=== PATIENT | male | born 1945 | race Caucasian/White ===

== ENCOUNTER 2016-12-19 07:11 | Day surgery (SDC) | payer MEDICARE, OTHER ==
[2016-12-19] VITALS (13 sets, daily range): BP systolic 101–130; BP diastolic 55–67; PULSE 60–91; RESP 10–18; O2SAT 95–100
[~2016-12-19] VITALS: Ht 172.7 cm; Wt 150.9 kg
[~2016-12-19 07:11] MED LIST: ACET-171 PO; ALBU8.5H2 INHALATION; ASCO100089 PO; ATRV10T PO; BENA40TA2 PO; CALC-140 PO; FLUT9.9S NS; FRSM80T PO; GLUC100016 PO; HYDR-3740 PO; INSU100V28 SUBQ; INSU100V7 SUBQ; MAGN250T29 PO; METO5TAB5 PO; MULT-1018 PO; POTA10CA42 PO; WARF2TAB7 PO
[2016-12-19] MEDS ORDERED: Ondansetron 2 mg/mL 2 mL Inj ONE (07:12)
[2016-12-19] MEDS ORDERED: Ketamine 10 mg/mL 20 mL Inj ONE (07:12)
[2016-12-19] MEDS ORDERED: Glycopyrrolate 0.2 MG/ML 1mL Inj ONE (07:12)
[2016-12-19] MEDS ORDERED: fentaNYL-PF 50 mCg/mL 2 mL Inj ONE (07:12)
[2016-12-19] MEDS ORDERED: 0.9% Sodium Chloride 1,000 ML IV PRN (09:32)
[2016-12-19] MEDS ORDERED: Vancomycin Inj 1,000 MG in IV Premix 1 EACH IV ONE (09:35)
[2016-12-19] MEDS ORDERED: Bupivacaine-MPF 0.5% 30 mL Inj ONE (11:04)
[2016-12-19] MEDS ORDERED: Heparin 1,000 Unit/mL 10 mL Inj ONE (11:04)
[2016-12-19] MEDS ORDERED: Vancomycin 1,000 mg Inj ONE (11:04)
[2016-12-19] MEDS ORDERED: 0.9% Sodium Chloride 250 ML ONE (11:04)
[2016-12-19] MEDS ORDERED: Heparin 5,000 Units/500 mL NS Premix IV ONE (11:04)
[2016-12-19] MEDS ORDERED: Water for Injection 50 ML IV ONE (11:06)
[2016-12-19 11:34] LABS: BASOPHILS % (AUTO) 0.4 % (0-3); EOSINOPHILS % (AUTO) 1.6 % (0-5); MONOCYTES % (AUTO) 9.1 % (4-12); Mean Corpuscular Hemoglobin 29.3 pg (27.0-35.0); Mean Corpuscular Volume 88.5 fL (81-100); NEUTROPHILS % (AUTO) 75.3 % (40-74); Platelet Count 154 bil/L (150-400)
[2016-12-19] MEDS ORDERED: ATOR40TA69 PO (11:45)
[2016-12-19] MEDS ORDERED: METF1000 PO (11:45)
--- NOTE | 2016-12-19 11:46 | NUR ---
Admit OZIEL Admitted to [facility] 5 about 1030. VSS. States pain 7/10 but that it is always a 6-8/10 in feet and generalized. Tele 100% Vpaced. Difficult IV start. IVT notified and IVs started and labs sent. BG 156. Procedure and recovery reviewed. Verbalizes understanding. See EMR for further info and assessment.
[2016-12-19 11:51] LABS: INR 1.58 ratio
[2016-12-19] MEDS ORDERED: Ondansetron 2 mg/mL 2 mL Inj IVPUSH PRN (16:25)
[2016-12-19] MEDS ORDERED: Lactated Ringer's 1,000 ML IV SCH (16:52)
[2016-12-19] MEDS ORDERED: Lactated Ringer's 500 ML IV PRN (16:52)
--- NOTE | 2016-12-19 16:52 | PCM.HPANE ---
Patient Data Surgeon Admitting Provider: Attending Provider:Wilmer Gao MD Primary Care Physician:Nicolette Rosen MD Other Provider:Jacqueline Kaiseringham Anesthesia Reason for Visit Ischemic Cardiomyopathy Ht/WT & BMI Height (Feet): 5 Height (Inches): 8.00 Weight (Kilograms): 150.900 Body Mass Index 50.42 Allergies Coded Allergies: atorvastatin (Verified Allergy, Mild, Myalgia, 12/19/16) niacin (Verified Allergy, Mild, Flushing, 12/19/16) oxycodone (Verified Allergy, Mild, unknown, 12/19/16) Past Anesthesia History Anesthesia History: Denies:: Anesthesia Reactions Diabetes History Hx Diabetes?: Yes (IDDM) MRSA MRSA: No Medications Reported Medications Metformin (Glucophage)1,000 Mg Tablet1,000 Mg PO BID Ref 0 12/19/16 Atorvastatin Calcium 40 Mg [id number] Mg PO DAILY Ref 0 12/19/16 Warfarin Sodium 2 Mg Tablet7 Mg PO DAILY 30 Days Ref 0 12/18/16 Potassium Chloride 10 Meq Capsule.er20 Meq PO TID 30 Days Ref 0 TAKE WITH FOOD 03/19/16 Multivitamin (Multi Vitamin Daily)1 Each Tablet1 Each PO DAILY 30 Days Ref 0 03/19/16 Metolazone 5 Mg Tablet5 Mg PO DAILY #1 TABLET 03/19/16 Insulin Glargine (Lantus U100 Insulin Vial)100 Unit/Ml Vial70 Units SUBQ BID #1 VIAL Ref 0 03/19/16 Insulin Regular, Human (HUMulin-R U100 Insulin Vial)100 Unit/1 Ml VialUnknown Dose SUBQ #1 VIAL Ref 0 03/19/16 Glucosamine Sulfate 2Kcl (Glucosamine)1,000 Mg Tablet1,500 Mg PO BID 03/19/16 Furosemide 80 Mg Txp936 Mg PO DAILY 30 Days Ref 0 03/19/16 Fluticasone Propionate (Flonase Allergy Relief)50 Mcg/Actuation [place].susp9.9 Ml NS PRN For Congestion 03/19/16 Calcium Carbonate/Vitamin D3 (Calcium + Vitamin D Tablet)1 Each Tablet1 Each PO BID 03/19/16 Benazepril 40 Mg Ckfwae26 Mg PO DAILY 03/19/16 Albuterol HFA (Proair HFA)8.5 Gm Hfa.aer.ad2 Puffs INHALATION Q4H #1 INHALER 03/19/16 Acetaminophen 500 Mg Tablet2,000 Mg PO BID PRN For Pain 03/19/16 Hydrocodone-Acetaminophen 10-325 mg 1 Each Tablet1 Tablet PO Q6H PRN For Pain Ref 0 06/12/15 Magnesium Oxide (Magnesium)250 Mg Zruuid105 Mg PO DAILY 12/13/13 Discontinued Reported Medications Ascorbic Acid (Vitamin C)1,000 Mg Tab.chew1,000 Mg PO BID Ref 0 03/19/16 Atorvastatin (Lipitor)10 Mg Tab20 Mg PO DAILY 30 Days Ref 0 12/13/13 Metformin (Glucophage)1,000 Mg Tablet1,000 Mg PO BID Ref 0 03/19/16 Warfarin Sodium 5 Mg Tablet2 Mg PO DAILY 30 Days Ref 0 06/12/15 History History of ENT Problems?: Yes HEENT History: Positive for:: Cataracts (surgically [id number]) Denture Type: None Teeth Condition: Missing Teeth Hx of Heart Problems?: Yes Cardiovascular History: Positive for:: Cardiac Surgery (CABG DECEMBER 1999, pacemaker) Edema Hypertension (on medication) Irregular Heartbeat (atrial fibrillation) Peripheral Vascular Denies:: Chest Pain Congestive Heart Failure Heart Murmur Pacemaker Thrombophlebitis Hx of Respiratory Problem?: Yes Respiratory History: Positive for:: Asthma (uses inhalers) Dyspnea Denies:: COPD Chest Surgery Emphysema Hemoptysis Pneumonia Tuberculosis Hx Neurologic Problems?: No Hx of GI Problems?: Yes Hx of Problems?: No Male Hx: Denies:: Scrotal Mass Testicular Surgery Hx Musculoskeletal Problems?: No Musculoskeletal History: Positive for:: Back Injury Denies:: Joint Replacement Hx of Psycho/Social Problems?: No Hx Surgeries?: Yes (FARNAZHEMMOSHAE,ENDART R LEG,1996, LE BYPASS ,CABG 00, R SHOULDER 08, ) Hx Any Other Health Problems?: Yes Other History: Positive for:: Hospitalization Denies:: Cancer Endocrine Disease Thyroid Disease History Blood Transfusions: Positive for:: Accept Blood Products? Blood Transfusions Denies:: Blood Transfuse Reaction Hx Diabetes: Yes (IDDM) Hx Alcohol Use: No (QUIT 2001)Hx Substance Use: No Smoking Status: Never Smoker Have You Smoked inLast 12 mo: No Stop/Bang Risk Assessment Category Category 1A: Patient has history of documented sleep apnea, and HAS NOT received any narcotic, sedative or anesthesia administration during this stay. Category 1B: Patient has history of documented sleep apnea, and HAS received any narcotic , sedative or anesthesia administration during this stay Category 2: Patient has SUSPECTED Obstructive Sleep Apnea, and HAS received any narcotic , sedative or anesthesia administration during this stay. Category 3: Patient has SUSPECTED Obstructive Sleep Apnea and HAS NOT received narcotic, sedative or anesthesia administration during this stay. Category 4: Outpatient in Procedural Areas with known sleep apnea or who screen positive for High Risk via the STOP/BANG questionnaire. Exam Exam Vital Signs Vital Signs Date Time Temp Pulse Resp B/P Pulse Ox O2 Delivery O2 Flow Rate FiO2 12/19/16 11:04 36.7 91 12 130/60 97 Room Air General Appearance: Alert, Oriented X3, Cooperative, No Acute Distress HEENT/AIRWAY: MP 1, MP 4, Other (limited neck extension) Lungs: Normal Air Movement Heart: Regular Rate/Rhythm Meds/Labs/Diagnostics Labs Test 12/19/16 11:20 White Blood Count 8.2th/mm3 (3.8-10.1) Red Blood Count 4.51mil/mm3 (4.40-5.80) Hemoglobin 13.2g/dL (13.8-17.2) Hematocrit 39.9% (41.0-50.0) Mean Corpuscular Volume 88.5fL (81-100) Mean Corpuscular Hemoglobin 29.3pg (27.0-35.0) Mean Corpuscular Hemoglobin Concent 33.1% (32.0-37.0) Red Cell Distribution Width 15.0% (12.3-15.4) Platelet Count 154bil/L (150-400) Neutrophils (%) (Auto) 75.3% (40-74) Lymphocytes (%) (Auto) 13.4% (14-46) Monocytes (%) (Auto) 9.1% (4-12) Eosinophils (%) (Auto) 1.6% (0-5) Basophils (%) (Auto) 0.4% (0-3) Prothrombin Time 17.1sec (8.1-12.5) Prothromb Time International Ratio 1.58ratio Sodium Level 138mEq/L (134-144) Potassium Level 3.7mEq/L (3.5-5.2) Chloride Level 92mEq/L (97-108) Carbon Dioxide Level 29mmol/L (18-29) Blood Urea Nitrogen 32mg/dL (8-27) Creatinine 1.21mg/dL (0.76-1.27) Estimat Glomerular Filtration Rate 63mL/min (>59) Glucose Level 175mg/dL (60-99) Calcium Level 9.6mg/dL (8.5-10.1) Plan Impression Patient chart reviewed, patient interviewed and anesthestic plan with risks, benefits, and alternatives discussed, and informed consent obtained. ASA Physical Status: ASA4 Life Threatening Anesthetic Support Modalities: [place] Scope, Fiberoptic Scope, Arterial Line Anesthetic Plan: GA Bene/Risks/Altern/Consents: Yes HP Complete Prior to Induction: Yes Elyse Og DO Dec 19, 2016 16:52
--- NOTE | 2016-12-19 16:53 | PCM.ANEP1 ---
Post Anesthesia Phase 1 PACU Phase 1 Assessment Vital Signs Vital Signs Date Time Temp Pulse Resp B/P Pulse Ox O2 Delivery O2 Flow Rate FiO2 12/19/16 11:04 36.7 91 12 130/60 97 Room Air Anesthetic Administered: GA Level of Alertness: Awake, talking PARR's with Equal Strength: No Pain: Yes Nausea or Vomiting: No Oxygen Delivery: Simple Mask Lungs: Normal Air Movement Complications: No Elyse Og DO Dec 19, 2016 16:53
[2016-12-19] MEDS ORDERED: EPHEDrine Sulfate 50 mg/mL Inj IVPUSH PRN (16:55)
[2016-12-19] MEDS ORDERED: Phenylephrine 10,000 mCg/mL Inj IVPUSH PRN (16:55)
[2016-12-19] MEDS ORDERED: fentaNYL-PF 50 mCg/mL 2 mL Inj IVPUSH PRN (16:55)
[2016-12-19] MEDS ORDERED: oxyCODONE-Acetamin 5-325 mg Tablet PO ONE (17:06)
--- NOTE | 2016-12-19 17:41 | DRSVH ---
PROCEDURE: X-RAY CHEST ONE VIEW, PORTABLE ([id number]) INDICATIONS: For new leads placed TECHNIQUE: One view of the chest was acquired. COMPARISON: None. FINDINGS: Surgical changes and devices: Status post placement of a separate ICD. Median sternotomy wires Lungs and pleura: No pleural effusions or pneumothorax. Lungs are clear. Mediastinum: Mediastinal contours appear normal. Heart size is normal. Bones and chest wall: No suspicious bony lesions. Overlying soft tissues appear unremarkable. IMPRESSION: No radiographic complications identified following placement of AICD. Dictated by: Morena Peng MD, PhD on 12/19/2016 at 17:38 Approved by: Morena Peng MD, PhD on 12/19/2016 at 17:39
[2016-12-19] MEDS: Sodium Chloride LOK Flush 10 mL Syringe IVFLUSH SCH ×2 (18:50→20:22)
--- NOTE | 2016-12-19 18:50 | NUR ---
Admission Patient admitted to 3021 via bed from [facility]. Report received from Nabila. Vital signs taken, stable. Pt states he is having his normal chronic back and leg pain, and has incisional pain of 2/10. Incision dressing C/D/I. Ice bag over dressing. Instructed that he must stay in bed until 1900, verbalizes understanding. Tolerating food and liquid well. Oriented to floor, call light given, denies any other needs.
--- NOTE | 2016-12-19 18:57 | NUR ---
Recovery/Transfer Received from bottle label inspector about 1700. VSS. Alert. 100% paced. O2 quickly weaned from 8L simple mask to RA and tolerated well. Dressing to LCW c/d/i. Ice pack on. CXR and EKG done. C/O 9/10 pain. Oxycodone given per order and helpful. Taking po well and voiding per urinal. Report to Jenna Azevedo RN. Transported to 3021 via bed at 1830 in no distress with all belongings. Family aware.
[2016-12-19] MEDS: HYDROcodone-APAP 10-325 mg PO PRN (20:22)
[2016-12-19] MEDS: Albuterol 2.5 mg/3 mL Inhalation Solution NEB PRN (21:09)
[2016-12-20] VITALS (8 sets, daily range): BP systolic 103–124; BP diastolic 66–70; PULSE 58–85; RESP 14–18; O2SAT 95–97
--- NOTE | 2016-12-20 01:22 | OP ---
[address] [address] OPERATIVE REPORT PATIENT: TABBY NAGY : 1945 MR#: [id number] ADMIT: 12/19/2016 JOB ID: [id number] DATE OF SURGERY: 12/19/2016 PREOPERATIVE DIAGNOSIS(ES): 1. Severe ischemic cardiomyopathy with ejection fraction 20% to 25%. 2. Chronic atrial fibrillation. 3. Complete heart block. 4. Obligate right ventricular apical pacing with consequent left bundle branch block and QRS duration 164 msec. 5. [place] Heart Association class III heart failure symptoms. 6. Chronic obstructive pulmonary disease. 7. Morbid obesity. POSTOPERATIVE DIAGNOSIS(ES): 1. Severe ischemic cardiomyopathy with ejection fraction 20% to 25%. 2. Chronic atrial fibrillation. 3. Complete heart block. 4. Obligate right ventricular apical pacing with consequent left bundle branch block and QRS duration 164 msec. 5. [place] Heart [employer] class III heart failure symptoms. 6. Chronic obstructive pulmonary disease. 7. Morbid obesity. PROCEDURES PERFORMED: 1. Biventricular implantable cardioverter-defibrillator implantation with placement of a multi lead implantable cardioverter-defibrillator generator, right ventricular implantable cardioverter-defibrillator lead, and coronary sinus left ventricular lead. 2. Coronary sinus venogram. 3. Pocket revision. 4. Left upper extremity venogram. 5. Fluoroscopy. 6. Capping of chronic right ventricular pace-sense lead. SURGEON: Wilmer Gao MD. JEWEL FLAT SURFACER: Angie Kane IMPLANTED DEVICES: 1. [employer] pulse generator, model [id number], serial #[id number]. 2. RV lead [employer] 7122Q, 58 cm, serial #[id number]. 3. LV lead, [employer] 1458Q, 86 cm, serial #[id number]. EXPLANTED DEVICE: [employer]onic pulse generator, model [id number], serial #[id number]. CHRONIC DEVICE: RV capped pace-sense lead Medtronic 5076, 58 cm, serial #[id number] ANESTHESIA: General endotracheal anesthesia was undertaken for this case. INDICATION: The patient is a pleasant 71-year-old man with ischemic heart disease, bypass grafting, ischemic cardiomyopathy, complete heart block, chronic atrial fibrillation and advanced heart failure symptomology. After discussion of the risks and benefits of upgrade of a single-chamber pacemaker to a biventricular ICD system he opted to proceed. PROCEDURAL DESCRIPTION: Following informed consent, the patient was taken to the EP laboratory in a fasting state where he was prepped and draped in usual sterile fashion. A left upper extremity venogram confirmed patency of the left subclavian system. The left infraclavicular surgical scar was infiltrated with 40 cc of a 50/50 mixture of bupivacaine and lidocaine. Once adequate anesthesia was achieved, a 4 cm incision was performed overlying the previous surgical scar. Dissection was carried down to the capsule and the lead and generator were freed loose of adhesions. The medial and inferior aspect of the capsule were infiltrated with more anesthetic and extended to accommodate the larger footprint of the new device. Then under venographic guidance and using the micropuncture needle, two 0.035, 3 mm J guidewires were inserted into the left subclavian system. Over the first of these, a 7-Macedonian tear-away sheath was advanced. Once the guidewire was removed, an active fixation single coil DF4 ICD lead was advanced to the RV outflow tract and to the RV apex. The lead was affixed in position using associated active fixation screw. It was connected to the external analyzer and demonstrated appropriately sensed R waves, impedance, capture threshold. Lead was checked to 10 V and there was no evidence of diaphragmatic stimulation. Attention was now paid to placement of the left ventricular CS lead. Over the other previously deployed J guidewire, a 9-Macedonian tear-away sheath was advanced. Once the guidewire was removed, a [employer] CS delivery sheath was advanced over a Supra CS decapolar EP catheter which was then used to engage the coronary sinus. The sheath was advanced into the coronary sinus. The EP catheter was pulled back, and a manual injection of contrast revealed a large posterolateral branch off of the coronary sinus which was chosen as our branch of choice. A quadripolar CS lead was then brought to the field and advanced in the branch of choice over a Whisper wire. The lead was connected to external analyzer and demonstrated appropriately sensed R waves, impedance, capture threshold. The lead was checked to 10 V and multiple configurations identified and diaphragmatic nerve stimulation in one but not all configurations. The Whisper wire was pulled back and in its stead was placed a finishing stylet. The short 9-Macedonian sheath was slit loose 1st then the long sheath slit loose next maintaining the stability of the leads. Once the position and redundancy of both leads had been confirmed in multiple fluoroscopic views, the leads were anchored to the prepectoralis fascia using the associated anchoring sleeves and two Ethibond sutures. The pocket was then copiously irrigated with antibiotic solution. A new ICD generator was brought into the field and the two new leads were connected to it and secured. The atrial port was plugged. The chronic pacemaker lead was disconnected from the generator. It was then capped and secured to the floor of the capsule. The entire system was then inserted into the capsule and the generator secured to the floor of the capsule using 1-0 Ti-Cron suture. The incision was then closed with running layers of absorbable suture. The wound was dressed with skin adhesive and a small dressing. At the end of procedure, the needle, sponge, instrument counts were all correct. COMPLICATIONS: None. ESTIMATED BLOOD LOSS: Negligible. DEVICE MEASURED DATA: 1. Right ventricular lead: No R wave 30 beats per minute, 600 ohms, 0.5 V at 0.5 msec. 2. LV lead 1175 ohms, 2 V at 1 msec (D1 to M2). FINAL PROGRAM PARAMETERS: 1. VVIR at 60 beats per minute. 2. VF zone at 187 beats per minute. ATP during charge, followed by maximum output shocks. 3. VT 2 zone at 171 beats per minute. ATP x3, followed by 30 joules, followed by 40 joules x3. 4. VT monitor zone at 150 beats per minute. IMPRESSION: Successful upgrade to a biventricular implantable cardioverter-defibrillator system. PLAN: 1. Stat portable chest x-ray. 2. PA and lateral chest x-ray in the morning. 3. Device 4. IV vancomycin through tomorrow, doxycycline 100 mg p.o. daily x7 days starting tomorrow. 5. Wound check in one week. ATTENDING STATEMENT: Wilmer Wilson MD, electrophysiology, was present for and supervised/performed all aspects of this procedure.
[2016-12-20] MEDS: HYDROcodone-APAP 10-325 mg PO PRN ×2 (02:39→09:15)
[2016-12-20] MEDS ORDERED: Vancomycin Inj 1,000 MG in IV Premix 1 EACH IV ONE (04:25)
[2016-12-20 07:02] LABS: INR 1.47 ratio
--- NOTE | 2016-12-20 07:52 | PCM.PHAPRO ---
Progress Date Dec 20-Nov INR 1.58 1.47 INR change -0.11 Warf Dose 0 7 Jt Noel Pharm.D Dec 20, 2016 07:52
[2016-12-20] MEDS ORDERED: Fluticasone 0.05% 15 Spray/2 Gm 16 Gm Nasal Spray NASAL SCH (08:30)
[2016-12-20] MEDS ORDERED: CEPH500T PO (08:57)
[2016-12-20] MEDS: Sodium Chloride LOK Flush 10 mL Syringe IVFLUSH SCH (09:16)
[2016-12-20] MEDS: Potassium Chloride 20 mEq SR Tablet PO SCH ×2 (09:16→13:04)
[2016-12-20] MEDS: Insulin LISPRO Low-Dose Scale SUBQ PRN ×2 (09:20→13:05)
[2016-12-20] MEDS: Albuterol 2.5 mg/3 mL Inhalation Solution NEB PRN (09:31)
--- NOTE | 2016-12-20 10:14 | DRSVH ---
PROCEDURE: X-RAY CHEST, TWO VIEWS ([id number]) INDICATIONS: For new lead placement TECHNIQUE: 2 views of the chest were acquired. COMPARISON: [facility], CR, XR CHEST 1VW (PORTABLE), 12/19/2016, 17:01. Selvin Starkey R, CHEST 2VW, 03/09/2014, 10:17 AM. FINDINGS: Surgical changes and devices: Cardiac pacemaking device and leads appear normal, sternotomy wires. Lungs and pleura: No pleural effusions or pneumothorax. Lungs are abnormal with flattening of the d iaphragms on the lateral view and a chronic interstitial prominence likely reflecting prior smoking h istory. Chronic CHF also could produce this appearance. Mediastinum: Mediastinal contours are normal. Heart size is mildly enlarged, chronically, but no de finite acute CHF is found. Bones and chest wall: No suspicious bony abnormalities. Soft tissues appear unremarkable. IMPRESSION: Chronic cardiomegaly, pacemaking device and leads appear normal, no pneumothorax. Suspec t COPD given the relative flattening of the hemidiaphragms on the lateral view. Dictated by: Emerson Turner M.D. on 12/20/2016 at 10:11 Approved by: Emerson Turner M.D. on 12/20/2016 at 10:13
--- NOTE | 2016-12-20 10:54 | PCM.DIMED ---
Discharge Instructions Date of Service Dec 20, 2016 Dates of Hospitalization 12/19/16 Discharge Diagnosis Discharge Diagnosis Severe cardiomyopathy with Biventricular pacing ( upgraded to dual chamber pacer ) Chronic Afib Complete heart block CHF COPD Morbid Obesity Diet Low fat, Low Sodium, Heart Healthy Activity Other (No lifting elbow above shoulder for 1 month. No lifting pushing or pulling over 10 pounds for a month. Watching for increased redness swelling or pain to the pacemaker site. Call the office if any questions or problemsl) Call your provider Fever or Chills, Shortness of breath, Bleeding, Chest pain, Vomitting, Weakness (unilateral) Patient Instructions Follow-up plan Follow up in pacer clinic in 1 week Mid-level Provider (F9): Patrick Santos PA-C Follow-up with Mid-level in: 6 weeks Moy Salgado PA-C Dec 20, 2016 10:51
--- NOTE | 2016-12-20 12:11 | PCM.DC.CAR ---
Discharge Summary Date of Service Dec 20, 2016 Date of Hospital Admission 12/19/16 Date of Discharge: Dec 20, 2016 Providers: Admitting Physician: Primary Care Physician: Nicolette Rosen MD Attending Physician: Wilmer Gao MD Diagnosis at Time of Discharge Severe cardiomyopathy with Biventricular pacing ( upgraded to dual chamber pacer ) Chronic Afib Complete heart block CHF COPD Morbid Obesity Problems: Invasive Procedures: IMPLANTED DEVICES: 1. [employer] pulse generator, model [id number], serial #[id number]. 2. RV lead [employer] 7122Q, 58 cm, serial #[id number]. 3. LV lead, [employer] 1458Q, 86 cm, serial #[id number]. Other Chest x-ray shows device in place with normal lead placement. No pneumothorax. Device check per company is normal. Dr. Gao has reviewed. Brief History and Physical: Mr. Spencer is a 71-year-old male with history of ischemic heart disease, bypass grafting, ischemic cardiomyopathy, complete heart block, chronic atrial fibrillation and advanced heart failure symptomatology. Dr. Gao discussed benefits of upgrading his single chamber pacemaker to biventricular ICD which patient agreed to proceed. Patient was brought into the operating room and under general anesthesia had a successful placement of biventricular implantable cardioverter defibrillator implanted with placement of multilead implantable cardioverter defibrillator generator, right ventricular implantable cardioverter defibrillator lead, and coronary sinus left ventricular lead. Reportedly his recovery was unremarkable. Patient claims that he did not sleep well last night and mentioned some minor tenderness over the pacemaker pocket. He denies fever or chills numbness tingling or weakness in his left arm, chest pain, shortness of breath. He does report a mild cough and some postnasal drip. Vitals are reviewed and benign. He had a normal chest x-ray without pneumothorax. Dr. Gao and radiologist reviewed the chest x-ray to be unremarkable from a procedure standpoint. His device was interrogated by the company minor adjustments were made and reviewed with Dr. Gao. On exam the patient is morbidly obese, found lying comfortably in bed in no apparent distress. He has an ice pack over the incision site which otherwise looks clean without discharge, swelling or redness. He has mild tenderness to palpation. Chest otherwise symmetrical with clear lung sounds. Heart sounds are distant but appear regular. Upper extremities are benign. Patient is alert and oriented 4. Hospital Course: Patient had device implanted as above. Unremarkable course over the evening. Evaluation the morning after appears benign. The patient is advised to follow- up in the device clinic in one week and with Patrick Santos PA-C in [address] him on cephalexin 500 mg twice a day for 7 days. This prescription sent to his pharmacy. He is given instructions limiting activity for the next month monitoring for signs of infection etc and discharged home. Discharge Medications Albuterol HFA (Proair HFA) 8.5 Gm Hfa.aer.ad 2 PUFFS INHALATION Q4H Atorvastatin Calcium (Atorvastatin Calcium) 40 Mg Tablet 40 MG PO DAILY Benazepril (Benazepril) 40 Mg Tablet 40 MG PO DAILY Calcium Carbonate/Vitamin D3 (Calcium + Vitamin D Tablet) 1 Each Tablet 1 EACH PO BID Cephalexin (Cephalexin) 500 Mg Tablet 500 MG PO BID Furosemide (Furosemide) 80 Mg Tab 240 MG PO DAILY Glucosamine Sulfate 2Kcl (Glucosamine) 1,000 Mg Tablet 1,500 MG PO BID Insulin Glargine (Lantus U100 Insulin Vial) 100 Unit/Ml Vial 70 UNITS SUBQ BID Magnesium Oxide (Magnesium) 250 Mg Tablet 250 MG PO DAILY Metformin (Glucophage) 1,000 Mg Tablet 1,000 MG PO BID Metolazone (Metolazone) 5 Mg Tablet 5 MG PO DAILY Multivitamin (Multi Vitamin Daily) 1 Each Tablet 1 EACH PO DAILY Potassium Chloride (Potassium Chloride) 10 Meq Capsule.er 20 MEQ PO TID TAKE WITH FOOD Warfarin Sodium (Warfarin Sodium) 2 Mg Tablet 7 MG PO DAILY As needed Acetaminophen (Acetaminophen) 500 Mg Tablet 2,000 MG PO BID PRN PRN For Pain Fluticasone Propionate (Flonase Allergy Relief) 50 Mcg/Actuation [place].susp 9.9 ML NS PRN For Congestion Hydrocodone-Acetaminophen 10-325 mg (Hydrocodone-Acetaminophen 10-325 mg) 1 Each Tablet 1 TABLET PO Q6H PRN PRN For Pain Miscellaneous Medications Insulin Regular, Human (HUMulin-R U100 Insulin Vial) 100 Unit/1 Ml Vial Unknown Dose SUBQ Followup Plan Follow-up plan Follow up in pacer clinic in 1 week Discharge Diet: Low fat, Low Sodium, Heart Healthy Discharge Activity: Other (No lifting elbow above shoulder for 1 month. No lifting pushing or pulling over 10 pounds for a month. Watching for increased redness swelling or pain to the pacemaker site. Call the office if any questions or problemsl) Moy Salgado PA-C Dec 20, 2016 11:53
--- NOTE | 2016-12-20 17:30 | NUR ---
Discharge Nursing Note: Patient was discharged to home at 1530.Patients IV was discontinued intact. His telemetry was removed .All of his discharge information was reviewed with him and his questions were answered to his satisfaction. Patient was brought to the hospital lobby in a wheelchair by nursing staff member and he was driven to home by a family member.
== END 2016-12-20 15:30 | disposition home or self-care (01) ==
LOC: SOUO 07:11 → MPC 18:34 → SOUO 12-20 15:30
PROVIDERS: ATTEND Internal Medicine Cardiovascular Disease
DX: I25.5 Ischemic cardiomyopathy (principal); Z00.6 Encounter for examination for normal comparison and control in clinical research program; I48.2 Chronic atrial fibrillation; I44.2 Atrioventricular block, complete; I50.9 Heart failure, unspecified; I44.7 Left bundle-branch block, unspecified; E11.9 Type 2 diabetes mellitus without complications; I10 Essential (primary) hypertension; J45.909 Unspecified asthma, uncomplicated; J44.9 Chronic obstructive pulmonary disease, unspecified; E66.01 Morbid (severe) obesity due to excess calories; Z68.43 Body mass index [BMI] 50.0-59.9, adult; Z95.1 Presence of aortocoronary bypass graft; Z79.4 Long term (current) use of insulin; Z79.01 Long term (current) use of anticoagulants; Z96.1 Presence of intraocular lens; I25.10 Atherosclerotic heart disease of native coronary artery without angina pectoris; G47.30 Sleep apnea, unspecified; Z79.84 Long term (current) use of oral hypoglycemic drugs
CPT/HCPCS: 33225; 33233; 33249; 36415; 71010; 71020; 80048; 85025; 85610; 93005; 94640; 94664; 94799; C1769; C1777; C1882; C1892; C1900; J1644; J1815; J2250; J2405; J3010; J3370; J7050; J7613; Q9967